=== PATIENT | female | born 1955 | race American Indian/Alaskan Native ===

== ENCOUNTER 2018-03-17 20:00 | Emergency (ER) | payer OTHER ==
[2018-03-17] MEDS ORDERED: ASPIRIN ONE (20:35)
[2018-03-17] MEDS ORDERED: ASPIRIN PO ONE (20:38)
[2018-03-17 21:01] LABS: Basophils # (Auto) 0.1 K/mm3 (0.0-0.1); Basophils % (Auto) 0.6 % (0.0-1.8); Eosinophils # (Auto) 0.2 K/mm3 (0.0-0.4); Hemoglobin 12.8 gm/dl (10.1-14.3); Lymphocytes # (Auto) 4.3 K/mm3 (1.2-5.4); Lymphocytes % (Auto) 40.3 % (13.4-35.0); Mean Corpuscular HGB Conc 34 % (30-34); Mean Corpuscular Hemoglobin 30 pg (28-32); Mean Corpuscular Volume 90 fl (79-97); Monocytes # (Auto) 0.6 K/mm3 (0.0-0.8); Monocytes % (Auto) 6.1 % (0.0-7.3); Platelet Count 347 K/mm3 (140-440); Red Blood Count 4.22 M/mm3 (3.65-5.03); Red Cell Distribution Width 13.5 % (13.2-15.2)
[2018-03-17 21:15] LABS: BUN/Creatinine Ratio 26; Blood Urea Nitrogen 21 mg/dL (7-17); Calcium 9.2 mg/dL (8.4-10.2); Hemolysis Index 2
[2018-03-18 02:52] VITALS: BP 168/87
[2018-03-18] MEDS ORDERED: TORADOL IV ONE (04:08)
[2018-03-18] MEDS ORDERED: TYLENOL PO ONE (04:08)
--- NOTE | 2018-03-18 04:09 | Emergency Department Report ---
ED Chest Pain HPI - General Chief Complaint: Chest Pain Stated Complaint: CP Time Seen by Provider: 03/18/18 03:55 Source: patient, RN notes reviewed Mode of arrival: Ambulatory Limitations: No Limitations - History of Present Illness Initial Comments: This is a 62-year-old female who is unknown to this provider. She reports that her primary care doctor is Dr. Parker she presents to the ER with a complaint of central and left-sided chest wall pain. It is present intermittently for 1 week. It increases with palpation. It decreases with rest. It radiates to her bilateral ears. There is no shortness of breath, no nausea or vomiting, no diaphoresis. No recent cardiac risk stratification,, no recent cocaine use. Patient admits to recent aspirin consumption. MD Complaint: chest pain -: Gradual Onset: during rest Pain Location: substernal, left chest Pain Radiation: none Quality: aching Consistency: intermittent Improves With: rest Worsens With: palpation Aspirin use within the Past 7 Days: (1) Yes - Related Data On Oral Contraceptives: No Previous Rx's Medication Instructions Recorded Last Taken Type Aspirin [Aspirin BABY CHEW TAB] 81 mg PO QDAY #30 tab.chew 03/18/18 Unknown Rx Allergies Allergy/AdvReac Type Severity Reaction Status Date / Time No Known Allergies Allergy Unverified 06/20/13 15:43 Heart Score - HEART Score History: Slightly suspicious EKG: Non-specific Age: 45-65 Risk factors: 1-2 risk factors Troponin: < normal limit HEART Score: 3 - Critical Actions Critical Actions: 0-3 pts:0.9-1.7%risk of adverse cardiac event.Candidate for discharge ED Review of Systems ROS: Stated complaint: CP Other details as noted in HPI Comment: All other systems reviewed and negative ED Past Medical Hx - Past Medical History Previous Medical History?: Yes Hx Diabetes: Yes - Surgical History Past Surgical History?: No Additional Surgical History: hysterectomy - Social History Smoking Status: Never Smoker Substance Use Type: None - Medications Home Medications: Home Medications Medication Instructions Recorded Confirmed Last Taken Type Aspirin [Aspirin BABY CHEW TAB] 81 mg PO QDAY #30 tab.chew 03/18/18 Unknown Rx ED Physical Exam - General Limitations: No Limitations General appearance: alert, in no apparent distress - Head Head exam: Present: atraumatic, normocephalic - Eye Eye exam: Present: normal appearance, EOMI. Absent: nystagmus - ENT ENT exam: Present: normal exam, normal orophraynx, mucous membranes moist, normal external ear exam - Neck Neck exam: Present: normal inspection, full ROM - Respiratory Respiratory exam: Present: normal lung sounds bilaterally, chest wall tenderness. Absent: respiratory distress - Cardiovascular Cardiovascular Exam: Present: regular rate, normal rhythm, normal heart sounds. Absent: bradycardia, tachycardia, irregular rhythm, systolic murmur, diastolic murmur, rubs, gallop - GI/Abdominal GI/Abdominal exam: Present: soft, normal bowel sounds. Absent: distended, tenderness, guarding, rebound, rigid, pulsatile mass - Extremities Exam Extremities exam: Present: normal inspection, full ROM, normal capillary refill , other (there is no palpable cord. There is a negative Homans sign.). Absent : tenderness, pedal edema, joint swelling, calf tenderness - Back Exam Back exam: Present: normal inspection, full ROM. Absent: paraspinal tenderness , vertebral tenderness - Neurological Exam Neurological exam: Present: alert, oriented X3, CN II-XII intact, normal gait, other (Extraocular movements intact. Tongue midline. No facial droop. Facial sensation intact to light touch in the V1, V2, V3 distribution bilaterally. 5 and 5 strength in 4 extremities.. Sensation is intact to light touch in 4 extremities.). Absent: motor sensory deficit - Psychiatric Psychiatric exam: Present: normal affect, normal mood - Skin Skin exam: Present: warm, dry, intact, normal color. Absent: rash ED Course Vital Signs 03/17/18 03/18/18 03/18/18 20:31 01:44 02:00 Temperature 98.1 F Pulse Rate 85 72 68 Respiratory 14 14 12 Rate Blood Pressure 168/93 179/119 179/119 O2 Sat by Pulse 99 99 99 Oximetry 03/18/18 02:30 Temperature Pulse Rate 69 Respiratory 11 L Rate Blood Pressure 168/87 O2 Sat by Pulse 99 Oximetry DOMINICK score - Dominick Score Age > 65: (0) No Aspirin use within the Past 7 Days: (1) Yes 3 or more CAD Risk Factors: (0) No 2 or more Angina events in past 24 hrs: (0) No Known CAD with more than 50% Stenosis: (0) No Elevated Cardiac Markers: (0) No ST Deviation Greater than 0.5mm: (0) No DOMINICK Score: 1 ED Medical Decision Making - Lab Data Result diagrams: 03/17/18 20:44 03/17/18 20:44 Vital Signs 03/17/18 03/18/18 03/18/18 20:31 01:44 02:00 Temperature 98.1 F Pulse Rate 85 72 68 Respiratory 14 14 12 Rate Blood Pressure 168/93 179/119 179/119 O2 Sat by Pulse 99 99 99 Oximetry 03/18/18 02:30 Temperature Pulse Rate 69 Respiratory 11 L Rate Blood Pressure 168/87 O2 Sat by Pulse 99 Oximetry Lab Results 03/17/18 03/17/18 03/18/18 Range/Units 20:44 20:44 02:30 WBC 10.7 (4.5-11.0) K/mm3 RBC 4.22 (3.65-5.03) M/mm3 Hgb 12.8 (10.1-14.3) gm/dl Hct 38.0 (30.3-42.9) % MCV 90 (79-97) fl MCH 30 (28-32) pg MCHC 34 (30-34) % RDW 13.5 (13.2-15.2) % Plt Count 347 (140-440) K/mm3 Lymph % (Auto) 40.3 H (13.4-35.0) % Desha % (Auto) 6.1 (0.0-7.3) % Eos % (Auto) 2.0 (0.0-4.3) % Baso % (Auto) 0.6 (0.0-1.8) % Lymph # 4.3 (1.2-5.4) K/mm3 Desha # 0.6 (0.0-0.8) K/mm3 Eos # 0.2 (0.0-0.4) K/mm3 Baso # 0.1 (0.0-0.1) K/mm3 Seg Neutrophils % 51.0 (40.0-70.0) % Seg Neutrophils # 5.5 (1.8-7.7) K/mm3 Sodium 136 L (137-145) mmol/L Potassium 4.4 (3.6-5.0) mmol/L Chloride 97.0 L (98-107) mmol/L Carbon Dioxide 28 (22-30) mmol/L Anion Gap 15 mmol/L BUN 21 H (7-17) mg/dL Creatinine 0.8 (0.7-1.2) mg/dL Estimated GFR > 60 ml/min BUN/Creatinine Ratio 26 % Glucose 183 H (65-100) mg/dL Calcium 9.2 (8.4-10.2) mg/dL Troponin T < 0.010 < 0.010 (0.00-0.029) ng/mL - EKG Data -: EKG Interpreted by Me EKG shows normal: sinus rhythm Rate: normal - EKG Data When compared to previous EKG there are: previous EKG unavailable 03/18/18 04:52 EKG #1 demonstrates normal sinus, 80 beats for minute, normal axis, QTC prolonged, high left ventricular voltage, Q waves noted in 1, aVL, not a STEMI, negatively deflected QRS lead 3 EKG #2 demonstrates sinus, left axis deviation, left ventricular hypertrophy, abnormal EKG, motion artifact, changes with compared to prior, not a stemi - Radiology Data Radiology results: report reviewed, image reviewed X-ray of the chest is negative for acute disease - Medical Decision Making Differential diagnosis, including but not limited to: Pneumonia, costochondritis , GERD, hiatal hernia, pericarditis, myocarditis Assessment and plan: 62-year-old female with no pulmonary embolus or DVT risk factors who is low risk by well's criteria, with clinically atypical reproducible chest wall pain. Troponin negative 2, x-ray of the chest negative , initial EKG nonspecific, her repeat EKG with nonspecific changes. I recommended admission to the hospital for cardiac risk stratification. The patient declined, and is going to sign out AGAINST MEDICAL ADVICE. The patient is alert and oriented 3, clinically sober, and exhibits decision-making capacity. Risks of leaving including , disability, paralysis, loss of quality of life were discussed with the patient, who verbalized understanding. This conversation is witnessed by nurse Chikis Sanchez. Patient was able to endorse the risks of leaving in her own words, was encouraged to follow up as soon as possible with an outpatient primary care doctor or nail tech. Critical care attestation.: If time is entered above; I have spent that time in minutes in the direct care of this critically ill patient, excluding procedure time. ED Disposition Clinical Impression: Chest wall pain, Abnormal EKG Disposition: [id number] LEFT AGAINST MED ADVICE Is pt being admited?: No Does the pt Need Aspirin: No Condition: Undetermined Instructions: Chest Pain (ED), Costochondritis (ED) Additional Instructions: As we discussed, you have left the hospital/emergency room AGAINST MEDICAL ADVICE. By leaving, you risked , disability, paralysis, permanent loss of quality of life. The ER is open 24 hours a day, 7 days a week. It never closes. Please return to the emergency room right away if and when you change your mind. If you decide not to return to the emergency room, please follow-up with the listed physician referrals as soon as possible. Referrals: MADISON PARKER MD [Primary Care Provider] - 3-5 Days [facility] [Provider Group] - 3-5 Days [facility] [Provider Group] - 3-5 Days
--- NOTE | 2018-03-18 04:48 | XRay Report ---
FINAL REPORT PROCEDURE: XR CHEST ROUTINE 2V TECHNIQUE: PA and lateral chest radiographs were obtained. CPT 07988 HISTORY: cp COMPARISON: No prior studies are available for comparison. FINDINGS: Heart: Normal. Mediastinum/Vessels: Normal. Lungs/Pleural space: Normal. Bony thorax: No acute osseous abnormality. Other: IMPRESSION: Normal examination.
== END 2018-03-18 05:00 | disposition left against medical advice (07) ==
LOC: ED 20:00
DX: R07.89 Other chest pain (principal); Z79.82 Long term (current) use of aspirin; E11.9 Type 2 diabetes mellitus without complications; Z90.710 Acquired absence of both cervix and uterus
CPT/HCPCS: 36415; 71046; 80048; 84484; 85025; 93005; 93010; 99284; J1885